=== PATIENT | male | born 1960 | race Caucasian/White ===

== ENCOUNTER 2019-07-27 09:06 | Inpatient (IN) | payer OTHER ==
[2019-07-27 09:31] LABS: CHLORIDE,CL 102 mEq/L (98-106); SODIUM,NA 138 mEq/L (136-145)
[2019-07-27] MEDS ORDERED: Sodium Chloride 0.9% 10 ML Syringe FLUSH PRN (10:16)
[2019-07-27] MEDS: Enoxaparin 40 MG/0.4 ML Syringe SUBCUT SCH (10:39)
[2019-07-27] MEDS: Metoprolol Tartrate 25 MG Tab PO SCH ×2 (10:39→19:26)
[2019-07-28] MEDS: Enoxaparin 40 MG/0.4 ML Syringe SUBCUT SCH (07:51)
[2019-07-28] MEDS ORDERED: DHA PO SCH (08:00)
[2019-07-28] MEDS ORDERED: [UNRECOGNIZED DRUG - OTHER] PO SCH (08:00)
[2019-07-28] MEDS ORDERED: Aspirin 81 MG Tab.EC PO SCH (08:00)
[2019-07-28] MEDS ORDERED: EPA PO SCH (08:00)
[2019-07-28] MEDS ORDERED: atorvaSTATin 10 MG Tab PO SCH (08:00)
[2019-07-28] MEDS ORDERED: FISH OIL PO SCH (08:00)
[2019-07-28] MEDS ORDERED: VITAMIN A 10000 UNIT PO SCH (08:00)
[2019-07-28] MEDS ORDERED: Clopidogrel 75 MG Tab PO SCH (08:00)
[2019-07-28] MEDS ORDERED: Losartan 25 MG Tab PO SCH (08:00)
[2019-07-28] MEDS ORDERED: OMEGA PO SCH (08:00)
[2019-07-28] MEDS ORDERED: Potassium Chloride 10 MEQ Tab.ER PO SCH (08:00)
[2019-07-28 08:23] LABS: CHLORIDE,CL 103 mEq/L (98-106); SODIUM,NA 137 mEq/L (136-145)
[2019-07-28] MEDS ORDERED: Nicotine 14 MG/24 Hr Patch TRDERM SCH (08:30)
--- NOTE | 2019-07-28 08:30 | PCM.PN ---
- General Info Date of Service: 07/28/19 Functional Status: Reports: Pain Controlled, Tolerating Diet, Ambulating, Urinating - Review of Systems General: Reports: No Symptoms HEENT: Reports: No Symptoms Pulmonary: Reports: No Symptoms Cardiovascular: Reports: No Symptoms. Denies: Chest Pain, Palpitations, Dyspnea on Exertion, Orthopnea, PND, Edema, Lightheadedness Gastrointestinal: Reports: No Symptoms. Denies: Nausea Genitourinary: Reports: No Symptoms Musculoskeletal: Reports: No Symptoms Skin: Reports: No Symptoms Neurological: Reports: No Symptoms Psychiatric: Reports: No Symptoms - Patient Data Vitals - Most Recent: Last Vital Signs Temp 98.4 F 07/28/19 07:31 Pulse 60 07/28/19 07:31 Resp 18 07/28/19 07:31 BP 129/73 07/28/19 07:31 Pulse Ox 97 07/28/19 07:31 Weight - Most Recent: 220 lb 5 oz Lab Results Last 24 Hours: Laboratory Results - last 24 hr 07/27/19 07/27/19 07/27/19 Range/Units 09:07 09:07 14:25 WBC 10.9 H (5.0-10.0) 10^3/uL RBC 4.89 (4.50-6.00) 10^6/uL Hgb 16.7 (14.0-18.0) g/dL Hct 48.0 (40.0-54.0) % MCV 98.2 H (82.0-94.0) fL MCH 34.2 H (27.0-32.0) pg MCHC 34.8 (33.0-38.0) g/dL RDW Coeff of Hernandez 13.3 (11.0-15.0) % Plt Count 364 (150-400) 10^3/uL Neut % (Auto) 55.6 (35-85) % Lymph % (Auto) 26.0 (10-55) % Kidder % (Auto) 12.5 (0-16) % Eos % (Auto) 5.1 H (0-5) % Baso % (Auto) 0.8 (0-3) % Neut # (Auto) 6.06 (1.80-7.00) 10^3/uL Lymph # (Auto) 2.84 (1.00-4.80) 10^3/uL Kidder # (Auto) 1.36 H (0.00-0.80) 10^3/uL Eos # (Auto) 0.56 H (0.00-0.45) 10^3/uL Baso # (Auto) 0.09 10^3/uL Sodium 138 (136-145) mEq/L Potassium 4.0 (3.5-5.0) mEq/L Chloride 102 (98-106) mEq/L Carbon Dioxide 25 (21-32) mmol/L BUN 9 (7-18) mg/dL Creatinine 0.8 (0.7-1.3) mg/dL Est Cr Clr Drug Dosing TNP Estimated GFR (MDRD) > 60 (>=60) mL/min Glucose 145 H (75-99) mg/dL Calcium 9.1 (8.4-10.1) mg/dL Lactate Dehydrogenase 185 (100-190) U/L Creatine Kinase 189 (35-232) U/L Troponin I < 0.017 < 0.017 (0.00-0.06) ng/mL 07/28/19 07/28/19 Range/Units 07:45 07:45 WBC 12.6 H (5.0-10.0) 10^3/uL RBC 5.17 (4.50-6.00) 10^6/uL Hgb 17.4 (14.0-18.0) g/dL Hct 50.6 (40.0-54.0) % MCV 97.9 H (82.0-94.0) fL MCH 33.7 H (27.0-32.0) pg MCHC 34.4 (33.0-38.0) g/dL RDW Coeff of Hernandez 13.1 (11.0-15.0) % Plt Count 355 (150-400) 10^3/uL Neut % (Auto) 58.7 (35-85) % Lymph % (Auto) 22.3 (10-55) % Kidder % (Auto) 13.3 (0-16) % Eos % (Auto) 4.9 (0-5) % Baso % (Auto) 0.8 (0-3) % Neut # (Auto) 7.39 H (1.80-7.00) 10^3/uL Lymph # (Auto) 2.80 (1.00-4.80) 10^3/uL Kidder # (Auto) 1.67 H (0.00-0.80) 10^3/uL Eos # (Auto) 0.62 H (0.00-0.45) 10^3/uL Baso # (Auto) 0.10 10^3/uL Sodium 137 (136-145) mEq/L Potassium 4.5 (3.5-5.0) mEq/L Chloride 103 (98-106) mEq/L Carbon Dioxide 28 (21-32) mmol/L BUN 9 (7-18) mg/dL Creatinine 0.8 (0.7-1.3) mg/dL Est Cr Clr Drug Dosing 100.12 Estimated GFR (MDRD) > 60 (>=60) mL/min Glucose 139 H (75-99) mg/dL Calcium 9.0 (8.4-10.1) mg/dL Lactate Dehydrogenase (100-190) U/L Creatine Kinase (35-232) U/L Troponin I < 0.017 (0.00-0.06) ng/mL Med Orders - Current: Current Medications Amlodipine Besylate (Norvasc) 10 mg PO [facility]TIME [facility] Aspirin (Halfprin) 81 mg PO DAILY [facility] Last Admin: 07/28/19 07:51 Dose: 81 mg Atorvastatin Calcium (Lipitor) 10 mg PO DAILY [facility] Last Admin: 07/28/19 07:51 Dose: 10 mg Clopidogrel Bisulfate (Plavix) 75 mg PO DAILY [facility] Last Admin: 07/28/19 07:51 Dose: 75 mg Enoxaparin Sodium (Lovenox) 40 mg SUBCUT DAILY [facility] Last Admin: 07/28/19 07:51 Dose: 40 mg Losartan Potassium (Cozaar) 25 mg PO DAILY [facility] Metoprolol Tartrate (Lopressor) 25 mg PO BID [facility] Last Admin: 07/27/19 19:26 Dose: 25 mg Nicotine (Habitrol) 14 mg TRDERM DAILY [facility] Non-Formulary Medication (Fayette-3/Dha/Epa/Fish Oil [Fayette 3 500 Softgel]) 10, 000 unit PO DAILY [facility] Non-Formulary Medication (Vitamin A [Vitamin A]) 10,000 units PO DAILY [facility] Potassium Chloride (Klor-Con 10) 40 meq PO DAILY [facility] Last Admin: 07/28/19 07:51 Dose: 40 meq Sodium Chloride (Saline Flush) 10 ml FLUSH ASDIRECTED PRN PRN Reason: Keep Vein Open Last Admin: 07/27/19 10:40 Dose: 10 ml - Exam General: Alert, Oriented, Cooperative, No Acute Distress Neck: Supple, Trachea Midline, No JVD Lungs: Clear to Auscultation, Normal Respiratory Effort Cardiovascular: Irregular Rhythm, Other (Rate 60s) GI/Abdominal Exam: Normal Bowel Sounds, Soft, Non-Tender, No Organomegaly, No Distention, No Abnormal Bruit, No Mass, Pelvis Stable Back Exam: Normal Inspection, Full Range of Motion Extremities: Normal Inspection, Normal Range of Motion, Non-Tender, No Pedal Edema, Normal Capillary Refill Peripheral Pulses: 2+: Carotid (L), Carotid (R), Radial (L), Radial (R), Posterior Tibial (L), Posterior Tibial (R), Dorsalis Pedis (L), Dorsalis Pedis ( R) Skin: Warm, Dry, Intact Neurological: No New Focal Deficit Psy/Mental Status: Alert, Normal Affect, Normal Mood - Problem List Review Problem List Initiated/Reviewed/Updated: Yes - My Orders Last 24 Hours: My Active Orders 07/28/19 08:00 EKG Documentation Completion [RC] STAT Aspirin [Halfprin] 81 mg PO DAILY Clopidogrel [Plavix] 75 mg PO DAILY Losartan [Cozaar] 25 mg PO DAILY Fayette-3/DHA/Epa/Fish Oil [Fayette 3 500 Softgel] 10,000 unit PO DAILY Potassium Chloride [Klor-Con 10] 40 meq PO DAILY Vitamin A [Vitamin A] 10,000 units PO DAILY atorvaSTATin [Lipitor] 10 mg PO DAILY 07/28/19 08:30 Nicotine [Habitrol] 14 mg TRDERM DAILY 07/28/19 20:00 amLODIPine [Norvasc] 10 mg PO BEDTIME - Plan Plan:: 0825am This patient was admitted yesterday for rapid a-flutter. Patient 3 weeks ago had a stent placed due to blockage. Patient reports when he had his stent placed he was asymptomatic. Patient reports also yesterday he was asymptomatic. He reports yesterday he went to cardiac rehab and the discovered his rhythm. Patient was placed on Metoprolol 25mg BID yesterday. He had two doses yesterday and his rhythm today is now controlled at a rate of 60-80s, but still in a-fib. Did not get metoprolol yet today. The patient is asymptomatic. He denies wetzel, dizziness, lightheaded, n, v, chest pain, shortness of breath, palpitations, edema. He denies all symptoms, reports he feels fine. Patient last night and this morning has been showing rhythm strip pauses on the monitor. One pause was 5.2 seconds. An EKG was obtained, rhythm strips sent to industrial staff nurse at [facility] to review. Awaiting his call back for consultation. Provider yesterday spoke with industrial staff nurse Dr. Corley. The labs yesterday were wbc 10.9, today is 12.9. All three troponins are negative. All labs otherwise unremarkable. Will await phone call from industrial staff nurse applications processor from [facility]. 0850am Dr. Garcia industrial staff nurse returned phone call. I spoke to him about the patient. He reports to hold the Metoprolol and send the patient there. He reports this patient will more than likely need a pacemaker. No further treatment from our facility. I then spoke to Dr. Chey alegria about this patient, he has accepted the patient. Patient will be transferred to [facility]. Patient will be transferred ground [facility]. Discussed with patient the risk/benefits of transfer. The risk of transfer are mvc, , cardiac arrest, needing paced, worsening of condition, rapid a-fib. The benefits of transfer are industrial staff nurse, higher level of care, pacemaker placement. The risks of staying in [place] is no industrial staff nurse, no pacemaker permanent placement, , cardiac arrest. The benefits of staying in [place] are close to home.
[2019-07-28] MEDS: Metoprolol Tartrate 25 MG Tab PO SCH (09:00)
[2019-07-28] MEDS ORDERED: amLODIPine 10 MG Tab PO SCH (20:00)
== END 2019-07-28 10:50 | DRG 310 ==
LOC: CC.FCMC 09:06 → CC.MS 09:06 → UNDOADMIN 10:12 → CC.MS 10:12
PROVIDERS: ADMIT Physician Assistant Medical; ATTEND Family Medicine
DX: I48.92 Unspecified atrial flutter (principal); E78.5 Hyperlipidemia, unspecified; E11.9 Type 2 diabetes mellitus without complications; N40.0 Benign prostatic hyperplasia without lower urinary tract symptoms; Z95.5 Presence of coronary angioplasty implant and graft; Z79.82 Long term (current) use of aspirin
CPT/HCPCS: 36415; 80048; 82550; 83615; 84484; 85025; 93005; A9270-GY; J1650

== ENCOUNTER → 2024-06-08 | Day surgery (SDC) | payer MEDICARE, BC ==
[~2024-06-08] MED LIST: Ketamine 200 MG/20 ML MDV ONE; Lidocaine 2% 20 ML MDV ONE; Midazolam 1 MG/ML 2 ML SDV ONE; Propofol 200 MG/20 ML SDV ONE; fentaNYL 50 MCG/ML SDV ONE
[2024-06-08] MEDS: Lactated Ringers 1,000 ML IV SCH (08:24)
== END ==
LOC: CC.SDS 07:31
PROVIDERS: ATTEND Family Medicine
DX: K25.9 Gastric ulcer, unspecified as acute or chronic, without hemorrhage or perforation (principal); K57.30 Diverticulosis of large intestine without perforation or abscess without bleeding; D50.9 Iron deficiency anemia, unspecified; I10 Essential (primary) hypertension; E78.5 Hyperlipidemia, unspecified; I48.0 Paroxysmal atrial fibrillation; E11.9 Type 2 diabetes mellitus without complications; N40.0 Benign prostatic hyperplasia without lower urinary tract symptoms; F17.210 Nicotine dependence, cigarettes, uncomplicated; Z79.82 Long term (current) use of aspirin; Z79.01 Long term (current) use of anticoagulants; Z79.899 Other long term (current) drug therapy
CPT/HCPCS: 00813; 43239; 45380; 87081; 88305; J2250; J2704; J3010; J7120; 93010; J3490